=== PATIENT | female | born 1990 | race Caucasian/White ===

== ENCOUNTER 2021-08-14 11:29 | Day surgery (SDC) | payer BC ==
[~2021-08-14] VITALS: Ht 170.2 cm; Wt 81.9 kg
[2021-08-14 12:14] VITALS: BP 110/76
[2021-08-14] MEDS ORDERED: CHLORHEXIDINE 15 ML UDC PO ONE (12:30)
[2021-08-14] MEDS ORDERED: LACTATED RINGERS 1,000 ML IV SCH (12:30)
[2021-08-14] MEDS ORDERED: TAMS-11 PO (12:35)
[2021-08-14] MEDS ORDERED: ACET-1600 PO (12:35)
[2021-08-14 12:44] LABS: HCG UR SG 1.022 (1.003-1.030)
[2021-08-14] MEDS ORDERED: OMNIPAQUE 350 MG/ML, 50 ML BOTTLE ONE (12:48)
[2021-08-14] MEDS ORDERED: MIDAZOLAM 1 MG/ML, 2ML ONE (13:40)
[2021-08-14] MEDS ORDERED: FENTANYL PF 100 MCG/2ML ONE (13:42)
[2021-08-14] MEDS ORDERED: PROMETHAZINE 25 MG/ML, 1ML IVPush PRN (14:00)
[2021-08-14] MEDS ORDERED: OXYcodone 5 MG/5 ML ORAL.SOL UDC PO PRN (14:00)
[2021-08-14] MEDS ORDERED: MEPERIDINE/PF 25MG/0.5ML IVPush PRN (14:00)
[2021-08-14] MEDS ORDERED: LABETALOL 5MG/ML, 20ML IV PRN (14:00)
[2021-08-14] MEDS ORDERED: ONDANSETRON 2MG/ML, 2ML IVPush PRN (14:00)
[2021-08-14] MEDS ORDERED: hydrALAzine 20 MG/ML, 1ML IV PRN (14:00)
[2021-08-14] MEDS ORDERED: HYDROmorphone 1 MG/ML, 1ML INJ IVPush PRN (14:00)
[2021-08-14] MEDS ORDERED: DIAZEPAM 5 MG/ML, 2ML IVPush PRN (14:00)
[2021-08-14] MEDS ORDERED: FENTANYL PF 100 MCG/2ML IV PRN (14:00)
[2021-08-14] MEDS ORDERED: ACETAMINOPHEN 325 MG TABLET PO PRN (14:00)
[2021-08-14] MEDS ORDERED: MEPERIDINE/PF 25MG/ML,1ML ONE (14:28)
[2021-08-14] MEDS ORDERED: KETOROLAC 30 MG/1 ML IV PRN (14:30)
[2021-08-14] MEDS ORDERED: OXYcodone/APAP 5/325MG TABLET PO PRN (14:30)
[2021-08-14] MEDS ORDERED: ONDANSETRON 2MG/ML, 2ML IV PRN (14:30)
[2021-08-14] MEDS ORDERED: ACETAMINOPHEN 325 MG TABLET ONE (16:04)
== END 2021-08-14 18:10 | disposition home or self-care (01) ==
LOC: OR 11:29
PROVIDERS: ATTEND Urology
DX: N20.0 Calculus of kidney (principal); Z20.822 Contact with and (suspected) exposure to COVID-19; Z79.899 Other long term (current) drug therapy; Z87.442 Personal history of urinary calculi; Z88.1 Allergy status to other antibiotic agents
CPT/HCPCS: 52356; 74420; 81025; 82360; 87635; 88300; J1885; J2250; J2405; J3010; J7120; Q9967; C1769; C2617